=== PATIENT | male | born 1970 | race African-American/Black ===

== ENCOUNTER 2016-04-08 10:23 | Outpatient (CLI) | payer MEDICARE, MEDICAID | END 2016-04-08 10:24 | disposition home or self-care (01) | DX: J18.9 Pneumonia, unspecified organism (principal); I51.7 Cardiomegaly; Z95.810 Presence of automatic (implantable) cardiac defibrillator ==

== ENCOUNTER 2016-07-26 08:00 | Outpatient (CLI) | payer MEDICARE, MEDICAID | END 2016-07-26 08:01 | disposition home or self-care (01) | DX: E11.9 Type 2 diabetes mellitus without complications (principal) ==

== ENCOUNTER 2016-10-04 10:52 | Outpatient (CLI) | payer MEDICARE | END 2016-10-04 10:53 | disposition critical access hospital (66) | LOC: EMS 10:52 | PROVIDERS: ATTEND Surgery | DX: R53.1 Weakness (principal); R73.09 Other abnormal glucose; R40.0 Somnolence | CPT/HCPCS: A0425; A0427 ==

== ENCOUNTER 2016-10-04 11:12 | Emergency (ER) | payer MEDICARE ==
--- NOTE | 2016-10-04 11:24 | ED Physician Documentation ---
History of Present Illness - Stated complaint Stated Complaint: AMS/FAILURE TO THRIVE - History obtained from History obtained from: Patient, Family, EMS - History of Present Illness Timing: How many weeks ago (1) - Additonal information Additional information: 46-year-old male with type 2 diabetes has had a decreased oral intake and high running sugars over the past week today he is not moving around much and the ambulance was summoned to his home. He lives at home with his mother. He is not much help with history. Sugars are running high. Since history is eventually able to assist with some history and the patient becomes less obtunded as fluid is administered. He does have a history of congestive heart failure and has an implantable AICD. He has a history of type 2 diabetes. He had a toothache in the left lower rear molar about 1 week ago he has had a decreased appetite and following that he stopped taking his medications about 3 days ago. He has not been eating for the past 3 days as well.He is not able to cooperate with a review of systems. Review of Systems Unable to obtain: Confused Throat: reports: Dental pain / toothache Neurologic: reports: Generalized weakness. denies: Focal weakness PD PAST MEDICAL HISTORY - Present Medications Home Medications: Ambulatory Orders Medication Instructions Recorded Confirmed Carvedilol [Coreg] 12.5 mg PO DAILY 10/04/16 10/04/16 Furosemide [Lasix] 80 mg PO DAILY 10/04/16 10/04/16 Lisinopril 20 mg PO DAILY 10/04/16 10/04/16 Pravastatin [Pravachol] 20 mg PO DAILY 10/04/16 10/04/16 Sertraline HCl 50 mg PO DAILY 10/04/16 10/04/16 Spironolactone 25 mg PO DAILY 10/04/16 10/04/16 metFORMIN [Glucophage] 500 mg PO BID 10/04/16 10/04/16 - Allergies Allergies/Adverse Reactions: Allergies Allergy/AdvReac Type Severity Reaction Status Date / Time No Known Drug Allergies Allergy Verified 10/04/16 11:59 PD ED PE NORMAL - General General: No acute distress, Well developed/nourished - HEENT HEENT: Atraumatic, PERRL - Neck Neck: Supple, no meningeal sign - Cardiac Cardiac: RRR, Other (2/6 holosystolic murmer at LSB) - Respiratory Respiratory: No respiratory distress, Clear bilaterally - Abdomen Abdomen: Soft, Non tender - Back Back: No CVA TTP, No spinal TTP - Derm Derm: Normal color, Warm and dry, No rash - Extremities Extremities: No deformity, No edema - Neuro Neuro: No motor deficit, No sensory deficit - Psych Psych: Other (mood is withdrawn and the affect is flat ) Results - Vitals Vitals: Vital Signs - 24 hr 10/04/16 10/04/16 10/04/16 11:12 12:34 12:50 Temperature 36.3 C L Heart Rate 70 65 73 Respiratory 20 20 Rate Blood Pressure 83/38 L 99/45 L 78/56 L O2 Saturation 92 95 10/04/16 10/04/16 10/04/16 13:45 14:12 14:32 Temperature Heart Rate 76 71 73 Respiratory 20 25 H 18 Rate Blood Pressure 71/33 L 73/38 L O2 Saturation 94 91 L 98 Oxygen O2 Source Room air - EKG (time done) 1244 Rate: Rate (enter#) (76) Ischemia: Q waves Compare to prior EKG: Old EKG unavailable Computer interpretation: Agree with computer - Labs Labs: Laboratory Tests 10/04/16 10/04/16 10/04/16 11:30 11:35 11:35 WBC 5.8 RBC 5.52 Hgb 15.6 Hct 51.6 MCV 93.4 MCH 28.4 MCHC 30.4 L RDW 15.3 H Plt Count 136 MPV 12.6 H Neut # 2.1 Lymph # 0.3 L Russell # 0.4 Eos # 0.0 Baso # 0.0 Absolute Nucleated RBC 0.00 Nucleated RBCs 0.1 Sodium 130 L Potassium 7.9 H* Chloride 88 L Carbon Dioxide 21 Anion Gap 21.0 H BUN 142 H* Creatinine 7.8 H* Estimated GFR (MDRD) 9 L Glucose 1484 H* Calcium 9.5 Total Bilirubin 1.0 AST 13 ALT 13 Alkaline Phosphatase 100 Troponin I Total Protein 7.6 Albumin 3.8 Globulin 3.8 Albumin/Globulin Ratio 1.0 Lipase 37 Serum Ketones NEGATIVE 10/04/16 10/04/16 11:35 14:43 WBC RBC Hgb Hct MCV MCH MCHC RDW Plt Count MPV Neut # Lymph # Russell # Eos # Baso # Absolute Nucleated RBC Nucleated RBCs Sodium 135 Potassium 5.0 Chloride 97 L Carbon Dioxide 18 L Anion Gap 20.0 H BUN 38 H Creatinine 7.8 H* Estimated GFR (MDRD) 9 L Glucose 1042 H* Calcium 9.4 Total Bilirubin AST ALT Alkaline Phosphatase Troponin I 0.25 Total Protein Albumin Globulin Albumin/Globulin Ratio Lipase Serum Ketones Procedures - IVC sono (time) 1120 Bedside IVC sono: IVC measures (cm) (mostly collapsed.), Significant dehydration PD MEDICAL DECISION MAKING - ED course Complexity details: reviewed old records, reviewed results, re-evaluated patient , considered differential, d/w patient ED course: 46-year-old male with a history of diabetes is found to have his diabetes out of control and he appears severely dehydrated. He is found to have a potassium of 7.1 with a blood sugar of over 1400. Here in the emergency department he is given 2 L of saline initially and insulin 10 units calcium gluconate 1 g Kayexalate 15 g orally and he is placed onto a insulin drip at 10 U/h. At 13:[address] Fleming product manager at [facility] and she will be accepting. The patient has responded to treatments and is now talking and making sense. The patient has had hypotension with systolics in the 70's and this is after standing. On examination he does not have rales and fluids are continued at 200ml/hr. He has been given insulin, Ca ++ and kayexalate and we are drawing blood at the time the patient is leaving to have results when he arrives. We are not able to get a reliable blood pressure reading and administration of pressers are considered, his mental status is improved and he does not have signs of failure at this point and we have held this in consideration of expedited transfer and will relay our lab results by the time the patient arrives at [facility]. Departure - Departure Disposition: 02 Transfer Acute Care Hosp Clinical Impression: Hyperkalemia, Dehydration, severe Hyperglycemia due to type 2 diabetes mellitus Qualifiers: Diabetes mellitus terminal superintendent insulin use: without correction use Qualified Code(s ): E11.65 - Type 2 diabetes mellitus with hyperglycemia Renal failure, acute Qualifiers: Acute renal failure type: unspecified Qualified Code(s): N17.9 - Acute kidney failure, unspecified Condition: Critical Discharge Date/Time: 10/04/16 15:15
[2016-10-04] MEDS ORDERED: SODIUM CHLORIDE 0.9% 1,000 ML IV ONE ×3 (11:30→14:14)
[2016-10-04] MEDS ORDERED: INSULIN REGULAR HUMAN 100 UNIT in SODIUM CHLORIDE 0.9% 100ML 99 ML IV STA (12:19)
[2016-10-04] MEDS ORDERED: CALCIUM GLUCONATE 1,000 MG in SODIUM CHLORIDE 0.9% 50 ML IV ONE (12:20)
[2016-10-04] MEDS ORDERED: INSULIN REGULAR HUMAN 100 UNIT/1 ML 10 ML MDV IVP STA (12:20)
[2016-10-04] MEDS ORDERED: SODIUM POLYSTYRENE SULFONATE 15 GM/60 ML BOTTLE PO STA (12:21)
[2016-10-04 12:23] LABS: CALCIUM 9.5 mg/dL (8.5-10.3); TOTAL PROTEIN 7.6 g/dL (6.7-8.2)
[2016-10-04] MEDS ORDERED: SODIUM POLYSTYRENE SULFONATE 15 GM/60 ML BOTTLE ONE (12:37)
[2016-10-04] MEDS ORDERED: INSULIN REGULAR HUMAN 100 UNIT/1 ML 10 ML MDV ONE (12:38)
[2016-10-04 13:06] LABS: BASOPHILS % (AUTO) 0.3 %; EOSINOPHILS % (AUTO) 0.1 %; LYMPHOCYTES # (AUTO) 0.3 10^3/uL (1.5-3.5); LYMPHOCYTES % (AUTO) 11.2 %; MEAN CORPUSCULAR HEMOGLOBIN 28.4 pg (27.0-31.0); MEAN CORPUSCULAR HGB CONC 30.4 g/dL (32.0-36.0); MEAN CORPUSCULAR VOLUME 93.4 fL (80.0-94.0); MEAN PLATELET VOLUME 12.6 fL (7.4-11.4); MONOCYTES # (AUTO) 0.4 10^3/uL (0.0-1.0); MONOCYTES % (AUTO) 13.9 %; NEUTROPHILS # (AUTO) 2.1 10^3/uL (1.5-6.6); NEUTROPHILS % (AUTO) 74.5 %; NUCLEATED RED BLOOD CELLS AUTO 0.1 /100WBC; RED CELL DISTRIBUTION WIDTH 15.3 % (12.0-15.0)
[2016-10-04 13:12] LABS: HCT - HEMATOCRIT 51.6 % (42.0-52.0); HGB - HEMOGLOBIN 15.6 g/dL (14.0-18.0); RED BLOOD COUNT 5.52 10^6/uL (4.70-6.10); UNCORRECTED WHITE BLOOD COUNT 5.8 x10^3/uL
[2016-10-04 13:14] LABS: WHITE BLOOD COUNT 5.8 x10^3/uL (4.8-10.8)
[2016-10-04 14:20] LABS: POTASSIUM 7.9 mmol/L (3.5-5.0)
[2016-10-04 14:21] LABS: CREATININE 7.8 mg/dL (0.6-1.2)
[2016-10-04 14:33] VITALS: BP 73/38
[2016-10-04 15:40] LABS: CALCIUM 9.4 mg/dL (8.5-10.3)
[2016-10-04 22:49] LABS: CREATININE 7.8 mg/dL (0.6-1.2)
== END 2016-10-04 15:15 | disposition short-term general hospital (02) ==
LOC: EDUNIT# → ED 11:12
DX: E86.0 Dehydration (principal); E11.65 Type 2 diabetes mellitus with hyperglycemia; Z79.84 Long term (current) use of oral hypoglycemic drugs; N17.9 Acute kidney failure, unspecified; E87.5 Hyperkalemia
CPT/HCPCS: 36415; 80048; 80053; 82009; 83690; 84484; 85025; 93005; 96361; 96374; 99284; 99285; A9270; J1815; J7040; 82803

== ENCOUNTER 2016-10-04 14:57 | Outpatient (CLI) | payer MEDICARE | END 2016-10-04 14:58 | disposition short-term general hospital (02) | LOC: EMS 14:57 | PROVIDERS: ATTEND Surgery | DX: N17.9 Acute kidney failure, unspecified (principal) | CPT/HCPCS: A0425; A0426 ==

== ENCOUNTER 2016-12-28 10:43 | Outpatient (CLI) | payer MEDICARE, MEDICAID | END 2016-12-28 10:44 | disposition home or self-care (01) | LOC: SC 10:43 | PROVIDERS: ATTEND Nurse Practitioner Family | DX: G47.33 Obstructive sleep apnea (adult) (pediatric) (principal); E66.01 Morbid (severe) obesity due to excess calories; Z68.44 Body mass index [BMI] 60.0-69.9, adult | CPT/HCPCS: 99205; G0463; 99212 ==

== ENCOUNTER 2017-02-06 21:35 | Outpatient (CLI) | payer MEDICARE, MEDICAID | END 2017-02-06 21:36 | disposition home or self-care (01) | LOC: SC 21:35 | PROVIDERS: ATTEND Internal Medicine Pulmonary Disease | DX: G47.33 Obstructive sleep apnea (adult) (pediatric) (principal); G47.61 Periodic limb movement disorder; Z68.44 Body mass index [BMI] 60.0-69.9, adult | CPT/HCPCS: 95811 ==

== ENCOUNTER 2017-07-06 02:07 | Outpatient (CLI) | payer MEDICARE, MEDICAID | END 2017-07-06 02:08 | disposition short-term general hospital (02) | LOC: EMS 02:07 | PROVIDERS: ATTEND Surgery | DX: R06.02 Shortness of breath (principal); R53.1 Weakness; W01.0XXA Fall on same level from slipping, tripping and stumbling without subsequent striking against object, initial encounter; Y92.009 Unspecified place in unspecified non-institutional (private) residence as the place of occurrence of the external cause | CPT/HCPCS: A0425; A0427; A0888 ==